=== PATIENT | female | born 1960 | race Hispanic/Latino ===

== ENCOUNTER 2018-01-25 21:39 | Inpatient (IN) | payer BC, OTHER ==
[~2018-01-25] VITALS: Ht 157.5 cm; Wt 65.8 kg
[2018-01-25] MEDS ORDERED: NITROGLYCERIN 0.4 MG SL TAB SL ONE (22:17)
[2018-01-25] MEDS ORDERED: ONDANSETRON HCL 4 MG/2 ML VIAL ONE (22:17)
[2018-01-25 22:18] LABS: BASOPHILS % (AUTO) 0.1 % (0.0-5.0); HEMATOCRIT 39.8 % (36-48); LYMPHOCYTES % (AUTO) 13.5 % (21.0-51.0); MEAN CORPUSCULAR HEMOGLOBIN 33.3 pg (27.0-33.0); MEAN CORPUSCULAR HGB CONC 34.3 g/dL (32.0-36.0); MONOCYTES % (AUTO) 7.6 % (3.0-13.0); NEUTROPHILS % (AUTO) 78.8 % (40.0-77.0); NUCLEATED RED BLOOD CELLS 0.1 % (0.0-0.19); PLATELET COUNT (AUTO) 249 K/uL (130-400); RED CELL DISTRIBUTION WIDTH 12.6 % (11.0-15.5); WHITE BLOOD COUNT (AUTO) 9.2 K/uL (4.8-10.8)
[2018-01-25] MEDS ORDERED: ASPIRIN 325 MG TABLET ONE (22:19)
[2018-01-25 22:45] LABS: INR 0.93 (0.85-1.15); PARTIAL THROMBOPLASTIN TIME 25.4 SEC (26.3-35.5); PROTHROMBIN TIME 9.8 SEC (9.6-11.6)
[2018-01-25 22:52] LABS: ALBUMIN 3.8 g/dL (3.5-5.0); BILIRUBIN,TOTAL 0.3 mg/dL (0.2-1.0); CREATININE 1.1 mg/dL (0.5-1.5); TOTAL PROTEIN, SERUM 7.7 g/dL (6.0-8.3)
[2018-01-25 22:56] LABS: POTASSIUM 2.8 mmol/L (3.5-5.1)
[2018-01-25] MEDS ORDERED: POTASSIUM BICARB/CIT AC 25 MEQ TABLET.EFF ONE (23:07)
[2018-01-26] MEDS ORDERED: IOHEXOL 350 MG/ML 100ML INFUS..BTL IV ONE (00:46)
[2018-01-26] MEDS ORDERED: ACETAMINOPHEN 325 MG TAB ONE ×3 (02:52→18:10)
[2018-01-26] MEDS ORDERED: ACETAMINOPHEN-CODEINE 300/30MG TAB ONE (02:52)
[2018-01-26] MEDS ORDERED: PROMETHAZINE/CODEINE 6.25-10MG/5ML CUP PO PRN (03:45)
[2018-01-26] MEDS: SODIUM CHLORIDE 0.9% 1000ML 1,000 ML IV SCH ×3 (03:45→19:45)
[2018-01-26] MEDS ORDERED: ONDANSETRON HCL 4 MG/2 ML VIAL IVP PRN (03:45)
[2018-01-26] MEDS ORDERED: ALBUTEROL SULFATE 0.083% 2.5 MG/3 ML INH IH ONE ×2 (04:08→11:00)
[2018-01-26] MEDS: ALBUTEROL SULFATE 0.083% 2.5 MG/3 ML INH IH SCH ×3 (04:36→19:00)
[2018-01-26] MEDS ORDERED: SODIUM CHLORIDE 0.9% 1000ML 1,000 ML IV ONE (04:46)
[2018-01-26 05:18] LABS: CREATININE 1.1 mg/dL (0.5-1.5); POTASSIUM 3.3 mmol/L (3.5-5.1)
[2018-01-26 05:24] LABS: ALBUMIN 3.6 g/dL (3.5-5.0); BILIRUBIN,TOTAL 0.3 mg/dL (0.2-1.0); TOTAL PROTEIN, SERUM 7.2 g/dL (6.0-8.3)
[2018-01-26 05:39] LABS: BASOPHILS % (AUTO) 0.4 % (0.0-5.0); EOSINOPHILS % (AUTO) 0.1 % (0.0-8.0); HEMATOCRIT 39.4 % (36-48); LYMPHOCYTES % (AUTO) 20.7 % (21.0-51.0); MEAN CORPUSCULAR VOLUME 97.1 fL (79-99); MONOCYTES % (AUTO) 5.7 % (3.0-13.0); NEUTROPHILS % (AUTO) 73.1 % (40.0-77.0); NUCLEATED RED BLOOD CELLS 0.1 % (0.0-0.19); PLATELET COUNT (AUTO) 171 K/uL (130-400); RED BLOOD CELL COUNT(AUTO) 4.06 MIL/uL (4.00-5.50); RED CELL DISTRIBUTION WIDTH 12.7 % (11.0-15.5); WHITE BLOOD COUNT (AUTO) 7.3 K/uL (4.8-10.8)
[2018-01-26] MEDS: CYCLOBENZAPRINE HCL 10 MG TABLET PO SCH ×3 (09:00→20:18)
[2018-01-26 12:14] LABS: CREATINE KINASE, TOTAL 46 U/L (21-232); MYOGLOBIN 28 ng/mL (10-92); TROPONIN I < 0.04 ng/mL (0.00-0.06)
[2018-01-26] MEDS: KETOROLAC TROMETHAMINE 30MG/ML IV PRN (13:16)
[2018-01-26 13:29] VITALS: BP 128/73
[2018-01-26] MEDS ORDERED: BENZ200C53 PO (13:55)
[2018-01-26] MEDS ORDERED: BUPR150T8 PO (13:55)
[2018-01-26] MEDS ORDERED: METO-391 PO (13:55)
[2018-01-26] MEDS ORDERED: ESOM40VI2 IV (13:55)
[2018-01-26] MEDS ORDERED: CEFU500T67 PO (13:55)
[2018-01-26] MEDS ORDERED: PRED10TA23 PO (13:55)
[2018-01-26] MEDS ORDERED: FLUT1AER IH (13:55)
[2018-01-26] MEDS ORDERED: METH16TA3 PO (13:55)
[2018-01-26] MEDS ORDERED: ERGO500014 PO (13:55)
[2018-01-26] MEDS ORDERED: ALBU18HF7 IH (13:55)
[2018-01-26] MEDS ORDERED: HYDR12.530 PO (13:55)
[2018-01-26] MEDS ORDERED: SIMV10TA6 PO (13:55)
[2018-01-26 15:38] VITALS: BP 90/54
[2018-01-26] MEDS ORDERED: ALBUTEROL SULFATE 0.083% 2.5 MG/3 ML INH IH PRN (17:15)
[2018-01-26] MEDS ORDERED: BENZONATATE 100 MG CAPSULE PO PRN (17:15)
[2018-01-26] MEDS: CEFTRIAXONE SODIUM 1 GM IVP SCH (17:54)
[2018-01-26] MEDS: METHYLPREDNISOLONE SOD SUCC 125MG/2ML VIAL IVP SCH (17:55)
[2018-01-26] MEDS: AZITHROMYCIN 500MG+NS 250ML 250 ML IV SCH (17:55)
[2018-01-26] MEDS ORDERED: ACETAMINOPHEN 325 MG TAB PO PRN (18:15)
[2018-01-26 19:55] VITALS: BP 101/71
[2018-01-26] MEDS: METOPROLOL TARTRATE 25 MG TAB PO SCH (20:18)
[2018-01-26 23:30] VITALS: BP 99/56
[2018-01-27] MEDS: ALBUTEROL SULFATE 0.083% 2.5 MG/3 ML INH IH SCH ×5 (00:34→23:15)
[2018-01-27] MEDS: METHYLPREDNISOLONE SOD SUCC 125MG/2ML VIAL IVP SCH ×3 (02:27→17:40)
[2018-01-27 03:57] VITALS: BP 97/61
[2018-01-27 04:56] LABS: BASOPHILS % (AUTO) 0.1 % (0.0-5.0); HEMATOCRIT 36.3 % (36-48); LYMPHOCYTES % (AUTO) 9.5 % (21.0-51.0); MEAN CORPUSCULAR HEMOGLOBIN 33.3 pg (27.0-33.0); MEAN CORPUSCULAR HGB CONC 34.3 g/dL (32.0-36.0); MEAN CORPUSCULAR VOLUME 97.2 fL (79-99); MONOCYTES % (AUTO) 2.6 % (3.0-13.0); NEUTROPHILS % (AUTO) 87.8 % (40.0-77.0); PLATELET COUNT (AUTO) 177 K/uL (130-400); RED BLOOD CELL COUNT(AUTO) 3.74 MIL/uL (4.00-5.50); RED CELL DISTRIBUTION WIDTH 12.9 % (11.0-15.5); WHITE BLOOD COUNT (AUTO) 3.7 K/uL (4.8-10.8)
[2018-01-27 05:06] LABS: ALBUMIN 2.9 g/dL (3.5-5.0); BILIRUBIN,TOTAL 0.3 mg/dL (0.2-1.0); CREATININE 0.9 mg/dL (0.5-1.5); POTASSIUM 4.6 mmol/L (3.5-5.1); TOTAL PROTEIN, SERUM 6.4 g/dL (6.0-8.3)
[2018-01-27] MEDS: BUDESONIDE 0.5 MG/2 ML INH IH SCH ×2 (07:29→18:00)
[2018-01-27 08:00] VITALS: BP 110/64
[2018-01-27] MEDS: CYCLOBENZAPRINE HCL 10 MG TABLET PO SCH ×3 (09:00→20:17)
[2018-01-27] MEDS: HYDROCHLOROTHIAZIDE 25 MG TABLET PO SCH (09:00)
[2018-01-27] MEDS: PANTOPRAZOLE SODIUM 40 MG TABLET.DR PO SCH (09:00)
[2018-01-27] MEDS: SIMVASTATIN 10 MG TABLET PO SCH (09:00)
[2018-01-27] MEDS: BUPROPION HCL 150 MG TABLET.SA PO SCH (09:00)
[2018-01-27] MEDS: KETOROLAC TROMETHAMINE 30MG/ML IV PRN ×2 (09:16→17:40)
[2018-01-27] MEDS: METOPROLOL TARTRATE 25 MG TAB PO SCH ×2 (09:16→20:17)
[2018-01-27] MEDS ORDERED: REGADENOSON 0.4 MG/5 ML PF SYG IVP SCH (10:30)
[2018-01-27 11:00] VITALS: BP 103/67
[2018-01-27 16:00] VITALS: BP 110/73
[2018-01-27] MEDS: CEFTRIAXONE SODIUM 1 GM IVP SCH (17:40)
[2018-01-27] MEDS: AZITHROMYCIN 500MG+NS 250ML 250 ML IV SCH (17:42)
[2018-01-27 19:55] VITALS: BP 108/74
[2018-01-27 23:40] VITALS: BP 97/58
[2018-01-28] MEDS: METHYLPREDNISOLONE SOD SUCC 125MG/2ML VIAL IVP SCH ×2 (02:46→09:15)
[2018-01-28 04:00] VITALS: BP 121/53
[2018-01-28] MEDS: BUDESONIDE 0.5 MG/2 ML INH IH SCH (06:57)
[2018-01-28] MEDS: ALBUTEROL SULFATE 0.083% 2.5 MG/3 ML INH IH SCH ×2 (06:57→11:00)
[2018-01-28 07:30] VITALS: BP 114/73
[2018-01-28] MEDS: SIMVASTATIN 10 MG TABLET PO SCH (09:00)
[2018-01-28] MEDS: CYCLOBENZAPRINE HCL 10 MG TABLET PO SCH (10:12)
[2018-01-28] MEDS: HYDROCHLOROTHIAZIDE 25 MG TABLET PO SCH (10:12)
[2018-01-28] MEDS: PANTOPRAZOLE SODIUM 40 MG TABLET.DR PO SCH (10:12)
[2018-01-28] MEDS: BUPROPION HCL 150 MG TABLET.SA PO SCH (10:12)
[2018-01-28] MEDS: METOPROLOL TARTRATE 25 MG TAB PO SCH (10:12)
[2018-01-28 11:00] VITALS: BP 110/67
[2018-02-02] MEDS ORDERED: ERGOCALCIFEROL (VITAMIN D2) 50,000 UNIT CAPSULE PO SCH (09:00)
== END 2018-01-28 12:00 | disposition home or self-care (01) | DRG 392 ==
LOC: EDH 21:39 → EDHIP 01-26 02:50 → 4CH 01-26 12:35
PROVIDERS: ADMIT Hospitalist; ATTEND Hospitalist
PROC: 3E0234Z Introduction of Serum, Toxoid and Vaccine into Muscle, Percutaneous Approach (ICD-10-PCS; principal; 2018-01-26)
DX: K29.70 Gastritis, unspecified, without bleeding (principal); J40 Bronchitis, not specified as acute or chronic; E78.5 Hyperlipidemia, unspecified; F17.210 Nicotine dependence, cigarettes, uncomplicated; I10 Essential (primary) hypertension; G43.909 Migraine, unspecified, not intractable, without status migrainosus; R07.81 Pleurodynia; Z98.82 Breast implant status; Z88.0 Allergy status to penicillin; Z88.8 Allergy status to other drugs, medicaments and biological substances; Z23 Encounter for immunization
CPT/HCPCS: 36415; 71045; 71250; 78452; 80053; 82550; 83874; 84484; 85025; 85610; 85730; 87804; 93005; 93017; 93306; 94640; 94664; 96374; A4218; A9500; J0456; J0696; J1885; J2405; J2785; J2930; J7030; Q9967

== ENCOUNTER 2018-11-25 20:23 | Emergency (ER) | payer BC ==
[~2018-11-25 20:23] MED LIST: ALBU18HF7 IH; BENZ200C53 PO; BUPR150T8 PO; ERGO500014 PO; FLUT1AER IH; HYDR12.530 PO; METO-391 PO; PRED10TA23 PO; SIMV10TA6 PO
[2018-11-25] MEDS ORDERED: ACETAMINOPHEN EXTRA STRENGTH 500 MG TABLET ONE (20:54)
[2018-11-25 21:11] LABS: BASOPHILS % (AUTO) 0.6 % (0.0-5.0); EOSINOPHILS % (AUTO) 1.4 % (0.0-8.0); HEMATOCRIT 38.5 % (36-48); LYMPHOCYTES % (AUTO) 34.6 % (21.0-51.0); MEAN CORPUSCULAR HEMOGLOBIN 34.5 pg (27.0-33.0); MEAN CORPUSCULAR HGB CONC 34.6 g/dL (32.0-36.0); MEAN CORPUSCULAR VOLUME 99.6 fL (79-99); NEUTROPHILS % (AUTO) 55.4 % (40.0-77.0); PLATELET COUNT (AUTO) 302 K/uL (130-400); RED BLOOD CELL COUNT(AUTO) 3.86 MIL/uL (4.00-5.50); RED CELL DISTRIBUTION WIDTH 12.2 % (11.0-15.5); WHITE BLOOD COUNT (AUTO) 6.8 K/uL (4.8-10.8)
[2018-11-25 21:58] LABS: AMPHET/METH SCREEN,URINE NEGATIVE (NEGATIVE); BARBITURATE SCREEN, URINE POSITIVE (NEGATIVE); BENZODIAZEPINES SCREEN,URINE NEGATIVE (NEGATIVE); CANNABINOID SCREEN,URINE POSITIVE (NEGATIVE); COCAINE SCREEN,URINE NEGATIVE (NEGATIVE); OPIATE SCREEN,URINE NEGATIVE (NEGATIVE); PHENCYCLIDINE SCREEN,URINE NEGATIVE (NEGATIVE)
== END 2018-11-25 22:42 | disposition home or self-care (01) ==
LOC: EDH 20:23
DX: R41.0 Disorientation, unspecified (principal); T43.8X5A Adverse effect of other psychotropic drugs, initial encounter; I10 Essential (primary) hypertension; E78.5 Hyperlipidemia, unspecified; G43.909 Migraine, unspecified, not intractable, without status migrainosus; F32.9 Major depressive disorder, single episode, unspecified; F41.9 Anxiety disorder, unspecified; Z72.0 Tobacco use; Z88.1 Allergy status to other antibiotic agents; Z88.8 Allergy status to other drugs, medicaments and biological substances; Y92.89 Other specified places as the place of occurrence of the external cause
CPT/HCPCS: 36415; 80048; 80305; 82550; 84484; 85025; 93005

== ENCOUNTER → 2021-11-19 | Outpatient (CLI) | payer BC ==
[~2021-11-19] MED LIST changes: +BUPR-113 PO; -BUPR150T8 PO; -SIMV10TA6 PO; +SIMV10TA97 PO
== END | disposition home or self-care (01) ==
LOC: RAH 11:05
PROVIDERS: ATTEND Nurse Practitioner Family
DX: Z12.31 Encounter for screening mammogram for malignant neoplasm of breast (principal)
CPT/HCPCS: 77067

== ENCOUNTER → 2023-09-24 | Outpatient (CLI) | payer BC | END | disposition home or self-care (01) | LOC: RAH 14:09 | PROVIDERS: ATTEND Nurse Practitioner Family | DX: M50.323 Other cervical disc degeneration at C6-C7 level (principal); M48.02 Spinal stenosis, cervical region | CPT/HCPCS: 72141 ==